=== PATIENT | female | born 1975 | race Caucasian/White ===

== ENCOUNTER → 2018-05-18 | Outpatient (CLI) | payer OTHER ==
[2018-05-18 09:07] LABS: Basophils % (A) 0 %; Eosinophils # (A) 0.1 k/uL (0-0.7); Eosinophils % (A) 1 %; HCT 40.9 % (34.0-46.0); HGB 13.1 gm/dL (11.4-16.0); Lymphocytes # (A) 1.8 k/uL (1.0-4.8); Lymphocytes % (A) 30 %; MCH 29.4 pg (25.0-35.0); MCV 91.9 fL (80.0-100.0); Mean Platelet Volume 6.8; Monocytes # (A) 0.3 k/uL (0-1.0); Monocytes % (A) 5 %; Neutrophils # (A) 3.6 k/uL (1.3-7.7); Neutrophils % (A) 62 %; Platelet Count 277 k/uL (150-450); RBC 4.45 m/uL (3.80-5.40); RDW 12.5 % (11.5-15.5); WBC 5.9 k/uL (3.8-10.6)
[2018-05-18 09:27] LABS: Anion Gap 12 mmol/L; Blood Urea Nitrogen 14 mg/dL (7-17); Calcium 9.4 mg/dL (8.4-10.2); Carbon Dioxide 26 mmol/L (22-30); Chloride 103 mmol/L (98-107); Glucose 84 mg/dL (74-99); Potassium 4.5 mmol/L (3.5-5.1); Sodium 141 mmol/L (137-145)
== END | disposition home or self-care (01) ==
LOC: LABPAT 08:27
PROVIDERS: ATTEND Urology
DX: Z01.812 Encounter for preprocedural laboratory examination (principal); N39.46 Mixed incontinence; R35.0 Frequency of micturition; N81.11 Cystocele, midline
CPT/HCPCS: 36415; 80048; 83735; 85025; 86850; 86900; 86901; 87086; 93005

== ENCOUNTER 2018-05-21 05:57 | Observation (INO) | payer OTHER ==
[2018-05-09 15:56] VITALS: BMI 27.3
[~2018-05-21 05:57] MED LIST: DEXAMETHASONE SOD PHOSPHATE 10 MG/ML 1 ML VIAL IV ONE; LACTATED RINGERS 1,000 ML IV SCH; LEVOFLOXACIN 500MG-D5W PMX 500 MG in DEXTROSE/WATER 1 100ML.BAG IVPB ONE; LIDOCAINE 1% 20 ML VIAL (10MG/ML) FOR IV START INTRADERMA PRN; ONDANSETRON 4 MG/2 ML VIAL IVP ONE; SCOPOLAMINE 1.5MG/72HR PATCH TRANSDERM ONE; ceFAZolin IN SWFI 2 GM/20 ML SYRINGE IVP ONE
[2018-05-21] MEDS ORDERED: MIDAZOLAM 2 MG/2 ML VIAL ONE (08:08)
[2018-05-21] MEDS ORDERED: SUCCINYLCHOLINE CHLORIDE 100 MG/5 ML SYR IV ONE (08:08)
[2018-05-21] MEDS ORDERED: LIDOCAINE 1% INJ 10MG/ML (20 ML MDV) ONE (08:08)
[2018-05-21] MEDS ORDERED: PROPOFOL 10 MG/ML 20 ML VIAL IV ONE (08:08)
[2018-05-21] MEDS ORDERED: KETOROLAC 30 MG/ML 1 ML VIAL ONE ×2 (08:08→16:00)
[2018-05-21] MEDS ORDERED: fentaNYL (PF) 50 MCG/ML 2 ML AMP ONE (08:08)
[2018-05-21] MEDS ORDERED: SODIUM CHLORIDE 0.9% IV ONE ×2 (08:24)
[2018-05-21] MEDS ORDERED: SODIUM CHLORIDE 0.9% 50 ML with VASOPRESSIN 20 UNIT IV ONE ×2 (08:24)
[2018-05-21] MEDS ORDERED: GENTAMICIN IV ONE ×2 (08:24)
[2018-05-21] MEDS ORDERED: BACITRACIN 500 UNIT/GM OINT 28.4 GM TUBE TOPICAL ONE (08:50)
--- NOTE | 2018-05-21 09:01 | P.OP ---
Date of Procedure: 05/21/18 Preoperative Diagnosis: Mixed urinary incontinence, grade 2 cystocele Postoperative Diagnosis: Same Procedure(s) Performed: Cystocele repair Anesthesia: BRIT Surgeon: Joann Ball Weapons Designer #1: Candida Esteban Estimated Blood Loss (ml): 25 IV fluids (ml): 200 Urine output (ml): 300 Pathology: none sent Condition: stable Disposition: PACU Description of Procedure: Patient is brought to the operating suite where a general analgesia is administered without difficulty. She's placed in the dorsal lithotomy position. The appropriate timeout is performed, urine hCG is negative, antibiotics are given. Weighted speculum was placed into the vagina after the cervix, vagina, perineum and lower abdominal areas are prepped and draped in usual sterile fashion. The vaginal mucosa is grasped above the cervix at 2:00 and 10:00. The mucosa is injected with a dilute Pitressin solution. The mucosa is opened with a scalpel. Metzenbaum scissors are used to undermine the mucosa and the cystocele is opened. The edges of the mucosa are grasped with Allis clamps. Truong catheter is placed, urine is clear. 2 interrupted sutures of 2-0 Vicryl are used. At this time Dr. Benitez performed the sling procedure , please see dictated separate operative note. When this is completed, the Metzenbaum scissors are used to trim the redundant mucosa. 2-0 Vicryl suture is used in a running locking manner to close the anterior repair. Dr. Benitez performances cystoscopy, no damage is noted, ureters are bilaterally patent. Please see his dictation. The vagina is packed with one- inch iodophor gauze. All sponge needle and enhancement counts are correct. Total estimated blood loss 25 mL's. 300 mL of urine noted. Fluid replacement 200 mL's. Patient is brought back to recovery room in very good condition with stable vital signs including blood pressure 95/63, pulse 66, 100% O2 saturation.
--- NOTE | 2018-05-21 09:17 | P.OP ---
Date of Procedure: 05/21/18 Preoperative Diagnosis: Mixed Urinary Incontinence Postoperative Diagnosis: Same Procedure(s) Performed: Obtryx Subfascial Sling Anesthesia: BRIT Surgeon: Fco Fraser [employer] Ax Consultant #1: Joann Ball Estimated Blood Loss (ml): 25 IV fluids (ml): 200 Pathology: none sent Condition: stable Disposition: PACU Indications for Procedure: She is a 42-year-old woman with a several year history of progressive mixed urinary incontinence, which requires the use of several pads daily. The urge component is predominant. On examination, she is noted to have urethral hypermobility, and stress incontinence is demonstrated with coughing and Valsalva. Urodynamic testing is consistent with Type II MADELINE, and I have suggested she undergo a T0T sling. Her cystocele will be repaired by Dr. Ball at the time of the sling. Operative Findings: Excellent bladder and urethral support attained. Description of Procedure: The patient was taken to the operating room and placed in the dorsal lithotomy position, with her legs supported in candycane stirrups. The perineum, lower abdomen, and vagina were prepped and draped sterilely. A 16-Turkmen Truong catheter was placed. Dr. Ball made an anterior vaginal wall incision, exposing the cystocele. Metzenbaum scissors were used to dissect laterally within the submucosal plane, to the inferior pubic ramus. She reduced the cystocele at its base. The scalpel was used to make bilateral groin incisions at the level of the clitoris. Subcutaneous tissues were spread with a hemostat. Each of the helical needles were passed through the respective groin incision, and turned such that the needle tip wrapped around the pubis. The needle tips were guided digitally into the vaginal incision. The Obtryx graft, which had been previously soaked in antibiotic solution, was secured to the needle tips in the standard fashion. The needles were then withdrawn, and the position of the graft was adjusted such that it overlie the mid urethra, as desired. With a hemostat placed between the graft and the urethra to prevent tension of the graft over the urethra, the plastic sheath was removed from the ends of the graft. The ends of the graft were cut beneath the skin incisions, and these incisions were closed using 4-0 Vicryl suture in a subcuticular fashion. Hemostasis within the vaginal incision was adequate, and it was evident at this time that the cystocele was completely reduced. Dr. Ball excised the redundant vaginal mucosa and closed it using 2-0 Vicryl suture in a running fashion. Cystoscopy was performed. The 30 lens was used to introduce the 19-Turkmen Storz cystoscopic sheath through the urethra and into the bladder under direct vision. The urethra and bladder were unremarkable. There was no evidence of perforation. Both ureteral orifices were of normal anatomic location and configuration, and clear urine effluxed from both. No tumors or foreign bodies were seen. The cystoscope was removed, and the Truong catheter was replaced into the bladder. Vaginal packing was placed. All sponge and needle counts were correct. The patient tolerated the procedure well was taken to the recovery room in stable condition.
[2018-05-21] MEDS ORDERED: ONDANSETRON 4 MG/2 ML VIAL IVP PRN (09:18)
[2018-05-21] MEDS ORDERED: HYDROcodone/APAP 5-325MG 1 EACH TAB PO PRN ×2 (09:20)
[2018-05-21] MEDS ORDERED: IBUPROFEN 600 MG TAB PO PRN (09:20)
[2018-05-21] MEDS: HYDROmorphone 0.5 MG/0.5 ML SYRINGE IVP PRN ×2 (09:29→09:34)
[2018-05-21] MEDS ORDERED: ONDANSETRON 4 MG/2 ML VIAL IVP ONE (09:35)
[2018-05-21] MEDS ORDERED: MEPERIDINE 50 MG/ML SYRINGE IVP ONE ×2 (09:50→09:59)
[2018-05-21] MEDS: DEXTROSE 5%-0.45% NACL 1,000 ML IV SCH (11:18)
[2018-05-21 17:52] VITALS: RESP 16
[2018-05-21] MEDS: KETOROLAC 30 MG/ML 1 ML VIAL IVP PRN (21:34)
[2018-05-22] MEDS: DEXTROSE 5%-0.45% NACL 1,000 ML IV SCH (00:05)
[2018-05-22] MEDS: KETOROLAC 30 MG/ML 1 ML VIAL IVP PRN ×2 (04:13→10:30)
[2018-05-22 08:22] VITALS: BP 99/62; PULSE 81; TEMP 97.4
[2018-05-22] MEDS ORDERED: LORATADINE 10 MG TAB PO SCH (09:00)
--- NOTE | 2018-05-22 09:15 | P.PN ---
Progress Note - Text Progress Note Date: 05/22/18 The patient is afebrile and doing well. She is tolerating a diet and ambulating without difficulty. Her vaginal packing and catheter were removed this morning and she has voided 300 mL with a postvoid residual 25 mL. She can be discharged later this morning and will see Dr. Fraser for follow-up in 1 week.
== END 2018-05-22 11:15 | disposition home or self-care (01) ==
LOC: OR 05:57 → 6PED 10:26 → OR 05-22 04:44 → 6PED 05-22 04:44
PROVIDERS: ADMIT Obstetrics & Gynecology; ATTEND Obstetrics & Gynecology
DX: N39.46 Mixed incontinence (principal); N81.11 Cystocele, midline; N36.41 Hypermobility of urethra; M06.9 Rheumatoid arthritis, unspecified; I83.90 Asymptomatic varicose veins of unspecified lower extremity; J30.2 Other seasonal allergic rhinitis; M45.9 Ankylosing spondylitis of unspecified sites in spine; R35.1 Nocturia; Z98.51 Tubal ligation status; Z88.0 Allergy status to penicillin; Z88.1 Allergy status to other antibiotic agents; Z82.49 Family history of ischemic heart disease and other diseases of the circulatory system; Z80.0 Family history of malignant neoplasm of digestive organs; Z80.3 Family history of malignant neoplasm of breast; Z81.8 Family history of other mental and behavioral disorders; Z84.89 Family history of other specified conditions; Z79.899 Other long term (current) drug therapy
CPT/HCPCS: 81025; 57288; 57240; G0378; C1771; J2250; J1580; J1100; J2175; J2405; J1956; J2001; J3010; J1885 ×2; J0330; J2704; J1170; J0690; 86850; 86900; 86901